=== PATIENT | male | born 1995 | race Caucasian/White ===

== ENCOUNTER 2020-07-28 18:44 | Emergency (ER) | payer OTHER, MEDICAID, SELFPAY ==
[2020-07-28 18:49] VITALS: BP 143/70; PULSE 97; RESP 14; TEMP 37.4; O2SAT 97; BMI 28.2
--- NOTE | 2020-07-28 18:56 | DI.RAD.S_ITS ---
PROCEDURE: XR CHEST 2V INDICATIONS: cough,yellow sputum TECHNIQUE: 2 views of the chest were acquired. COMPARISON: None. FINDINGS: Surgical changes and devices: None. Lungs and pleura: Rounded density within the superior segment left lower lobe measuring 66 mm. No pleural effusions or pneumothorax. Mediastinum: Mediastinal contours are normal. Heart size is normal. Bones and chest wall: No suspicious bony abnormalities. Soft tissues appear unremarkable. IMPRESSION: Rounded density within the left lower lobe, consistent with rounded pneumonia, given the patient's age and symptomatology. Continued plain film follow-up is recommended to ensure resolution, and to exclude underlying neoplasm. Dictated by: Skyler Dominguez M.D. on 07/28/2020 at 19:17 Approved by: Skyler Dominguez M.D. on 07/28/2020 at 19:18
[2020-07-28 19:09] LABS: COVID19 -Nasal RAPID Negative (Negative)
--- NOTE | 2020-07-28 20:08 | ED.GENADULT ---
HPI - General Adult General Chief complaint: Upper Respiratory Symptoms Stated complaint: states bronchitis Time Seen by Provider: 07/28/20 20:03 Source: patient Mode of arrival: Ambulatory Limitations: no limitations History of Present Illness HPI narrative: Patient is a 24-year-old male here for what he states is bronchitis. He states that for the past several weeks he has had a productive cough which he states sometimes is blood tinged. He has also had body aches. No fevers. No abdominal pain. He thinks that he has bronchitis. He was convinced to come the emergency department for evaluation because of his . Related Data Previous Rx's Medication Instructions Recorded azithromycin See Rx Instructions .ROUTE 07/28/20 .COMPLEX #6 tab Allergies Allergy/AdvReac Type Severity Reaction Status Date / Time No Known Drug Allergies Allergy Verified 07/28/20 18:51 Review of Systems Constitutional Constitutional: Denies fatigue, Denies fever(s) and Denies headache(s) ENT Ears, Nose, Mouth, and Throat: Denies headache(s) Cardiovascular Cardiovascular: Denies chest pain and Reports dyspnea Respiratory Respiratory: Reports cough, Reports excessive phlegm production and Reports dyspnea Gastrointestinal Gastrointestinal: Denies abdominal pain, Denies nausea and Denies vomiting Integumentary/Breasts Skin/Breast: Denies rash Neurologic Neurologic: Denies behavioral changes and Denies headache(s) Psychiatric Psychiatric: Denies behavioral changes Endocrine Endocrine: Denies fatigue Hematologic/Lymphatic On Anticoagulants: No Allergic/Immunologic Allergic/Immunologic: Denies urticaria Patient History Medical History Healthy adult Social History Smoking Status: Current every day smoker Smoking Status: Current every day smoker alcohol intake frequency: holidays/special occasions only Substance Use Type: marijuana Exam Initial Vital Signs Initial Vital Signs: Vital Signs Temperature 99.4 F 07/28/20 18:49 Pulse Rate 97 H 07/28/20 18:49 Respiratory Rate 14 07/28/20 18:49 Blood Pressure 143/70 H 07/28/20 18:49 Pulse Oximetry 97 07/28/20 18:49 Const General: cooperative and comfortable Limitations: mental status not altered HENMT Head: normal to inspection and normocephalic Resp Effort & Inspection: normal respiratory effort Auscultation: clear to auscultation bilaterally Cardio Rate: regular rate Rhythm: regular rhythm Skin Lesions: no lesions Rashes: no rashes Neuro General: patient alert, patient awake and patient oriented x3 Cognition: normal cognition Speech: speech normal Extrem General: normal to inspection and capillary refill normal Psych Appearance: grossly normal and well kempt Course Orders Ordered: ED Orders 07/28/20 18:54 COVID19 Stat 07/28/20 18:56 Chest [XR chest 2V] Stat Vital Signs Vital signs: Vital Signs - 8 hr 07/28/20 20:23 Pulse Rate 80 Respiratory Rate 18 Blood Pressure 140/68 Pulse Oximetry 98 Medical Decision Making Lab Data Lab results reviewed: Yes I reviewed the patient's lab results. Labs: Lab Results 07/28/20 Range/Units 18:54 SARS-CoV-2 (PCR) Negative (Negative) Imaging Data Chest x-ray: Radiologist's Impression: Rich Mandujano 24 M [address] [id number] ReportSigned Patient: Rich Mandujano JMR#: [id number]: [id number]:[id number]/Sex: 24 / MDate of Service: 07/28/20Loc: EDAccession Number: [id number] Procedure: XR chest 2V Ordering Provider: Galo Medrano D.O. PROCEDURE: XR CHEST 2V INDICATIONS: cough,yellow sputum TECHNIQUE: 2 views of the chest were acquired. COMPARISON: None. FINDINGS: Surgical changes and devices: None. Lungs and pleura: Rounded density within the superior segment left lower lobe measuring 66 mm. No pleural effusions or pneumothorax. Mediastinum: Mediastinal contours are normal. Heart size is normal. Bones and chest wall: No suspicious bony abnormalities. Soft tissues appear unremarkable. IMPRESSION: Rounded density within the left lower lobe, consistent with rounded pneumonia, given the patient's age and symptomatology. Continued plain film follow-up is recommended to ensure resolution, and to exclude underlying neoplasm. Dictated by: Skyler Dominguez M.D. on 07/28/2020 at 19:17 Approved by: Skyler Dominguez M.D. on 07/28/2020 at 19:18 [facility] Narrative Medical decision making narrative: COVID is negative, chest x-ray is concerning for left lower lobe pneumonia. Secondary to this will treat him with antibiotics. He just recently made contact with a primary provider and has an appointment scheduled already. He was instructed to keep this appointment so that he can have a re-evaluation and a repeat chest x-ray if needed. He was given return precautions and follow-up instructions. He expressed understanding agreement. Discharge Plan Departure Patient Disposition: Home Clinical Impression: Pneumonia Instructions: DI for Pneumonia -- Adult Activity Restrictions/Additional Instructions: Your chest x-ray today is concerning about a left lower lobe pneumonia. A prescription for antibiotics was electronically transmitted to [facility] in [place]. Recommend that you keep your already scheduled follow-up appoint with her primary provider. Return to the emergency department for any new or worsening symptoms Prescriptions: New azithromycin 250 mg tablet See Rx Instructions .ROUTE .COMPLEX Qty: 6 RF: 0
[2020-07-28 20:23] VITALS: BP 140/68; PULSE 80; RESP 18; O2SAT 98
== END 2020-07-28 20:23 | disposition home or self-care (01) ==
PROVIDERS: Emergency Provider Emergency Medicine
DX: J18.9 Pneumonia, unspecified organism (principal); R05 Cough; R06.00 Dyspnea, unspecified; Z20.822 Contact with and (suspected) exposure to COVID-19
CPT/HCPCS: 71046; 87635; 99283; C9803

== ENCOUNTER 2022-03-12 17:23 | Emergency (ER) | payer OTHER, MEDICAID, SELFPAY ==
[2022-03-12 17:26] VITALS: BP 129/69; PULSE 70; RESP 16; TEMP 36.9; O2SAT 99
--- NOTE | 2022-03-12 17:29 | DI.RAD.S_ITS ---
PROCEDURE: XR CHEST 2V INDICATIONS: fever/cough x1wk TECHNIQUE: 2 views of the chest were acquired. COMPARISON: [facility], , XR CHEST 2V, 07/28/2020, 19:02. FINDINGS: Surgical changes and devices: None. Lungs and pleura: Lungs are clear. No pleural effusions or pneumothorax. Mediastinum: Mediastinal contours are normal. Heart size is normal. Bones and chest wall: No suspicious bony abnormalities. Soft tissues appear unremarkable. IMPRESSION: Normal two view chest x-ray Approved by: Jeramie Davis M.D. on 03/12/2022 at 17:23
[2022-03-12 18:38] LABS: COVID19 -Nasal RAPID Negative (Negative)
[2022-03-12 19:12] VITALS: BP 119/68; PULSE 76; RESP 18; O2SAT 95
--- NOTE | 2022-03-12 19:58 | ED.URI ---
HPI - URI/Sore Throat <HUGH Ling - Last Filed: 03/12/22 20:00> General Chief Complaint: Upper Respiratory Symptoms Stated Complaint: Coughing body aches fatigue Time Seen by Provider: 03/12/22 19:01 Source: patient Mode of arrival: Ambulatory History of Present Illness HPI Narrative: This is a 26-year-old male who presents to the emergency department complaining of congestion, runny nose, cough for 7-10 days, states that it started as allergies and it has progressed and he has not been able to clear his sinuses. He now complains of face pain and headaches. He denies any fevers, shortness of breath, chest pain, sore throat, dizziness or ear pain. Related Data Previous Rx's Medication Instructions Recorded azithromycin 250 mg tablet See Rx Instructions PO .COMPLEX #6 07/28/20 tabs amoxicillin 875 mg-potassium 1 tab PO BID 7 days #14 tabs 03/12/22 clavulanate 125 mg tablet Allergies Allergy/AdvReac Type Severity Reaction Status Date / Time No Known Drug Allergies Allergy Verified 07/28/20 18:51 Review of Systems <HUGH Ling - Last Filed: 03/12/22 20:00> Review of Systems Narrative: Review of systems is negative for acute abnormalities unless otherwise noted in HPI Patient History <HUGH Ling - Last Filed: 03/12/22 20:00> Medical History Healthy adult Social History Smoking Status: Current every day smoker Smoking Status: Current every day smoker alcohol intake frequency: holidays/special occasions only Substance Use Type: marijuana Exam <HUGH Ling - Last Filed: 03/12/22 20:00> Narrative Exam Narrative: Reviewed vitals signs and nursing notes. General: cooperative, comfortable, in no acute distress, well groomed HEENT: symmetrical facial expressions, moist mucous membranes, maxillary and frontal tenderness to palpation, congested nares, afebrile, Cardiovascular: regular rate and rhythm, no peripheral edema, warm extremities Respiratory: normal effort, able to speak in complete sentences, without wheezing, stridor, or abnormal breath sounds. No retractions or tachypnea. Psych: mental status is grossly normal, congruent mood, normal affect, pleasant and cooperative Initial Vital Signs Initial Vital Signs: Vital Signs Temperature 98.4 F 03/12/22 17:26 Pulse Rate 70 03/12/22 17:26 Respiratory Rate 16 03/12/22 17:26 Blood Pressure 129/69 03/12/22 17:26 Pulse Oximetry 99 03/12/22 17:26 Oxygen Delivery Method 03/12/22 17:26 <Miri Smith DO - Last Filed: 03/13/22 03:03> Initial Vital Signs Initial Vital Signs: Vital Signs Temperature 98.4 F 03/12/22 17:26 Pulse Rate 70 03/12/22 17:26 Respiratory Rate 16 03/12/22 17:26 Blood Pressure 129/69 03/12/22 17:26 Pulse Oximetry 99 03/12/22 17:26 Oxygen Delivery Method 03/12/22 17:26 Course <HUGH Ling - Last Filed: 03/12/22 20:00> Orders Ordered: ED Orders 03/12/22 18:17 COVID19 -Nasal RAPID/Pre-Proc Stat Vital Signs Vital signs: Vital Signs - 8 hr 03/12/22 19:12 Pulse Rate 76 Respiratory Rate 18 Blood Pressure 119/68 Pulse Oximetry 95 Oxygen Delivery Method Room Air <Miri Smith DO - Last Filed: 03/13/22 03:03> Orders Ordered: ED Orders 03/12/22 18:17 COVID19 -Nasal RAPID/Pre-Proc Stat Vital Signs Vital signs: Vital Signs - 8 hr 03/12/22 19:12 Pulse Rate 76 Respiratory Rate 18 Blood Pressure 119/68 Pulse Oximetry 95 Oxygen Delivery Method Room Air MDM - URI/Sore Throat <HUGH Ling - Last Filed: 03/12/22 20:00> Lab Data Labs: Lab Results 03/12/22 Range/Units 18:17 SARS-CoV-2 (PCR) Negative (Negative) MDM Narrative Medical decision making narrative: This is a 26-year-old male who presents to the emergency department for sinus congestion, face pain, headaches and his symptoms and exam are consistent with sinusitis. Patient has had symptoms for at least 10 days, he was prescribed Augmentin b.i.d. for the next 7 days, encouraged to use saline sinus rinses, Zyrtec at night, and Flonase twice a day. Until his symptoms resolve. #331 & 332: Antibiotic use with Sinusitis *if the second, third, or fourth prompt is selected, only then should the clinician see the sub-prompts addressing amoxicillin x[] The patient has sinusitis and antibiotics are not indicated/not prescribed at this time. [SATISFIES MIPS PERFORMANCE] [x] The patient has sinusitis with symptom onset greater than 10 days ago and the patient was prescribed antibiotics. [SATISFIES MIPS PERFORMANCE] [x] Patient was prescribed an amoxicillin-based antibiotic. <Miri Smith, DO - Last Filed: 03/13/22 03:03> Lab Data Labs: Lab Results 03/12/22 Range/Units 18:17 SARS-CoV-2 (PCR) Negative (Negative) Discharge Plan Departure Patient Disposition: Home Clinical Impression: Sinusitis Instructions: DI for Sinusitis Activity Restrictions/Additional Instructions: *You have been diagnosed with a sinus infection. Please use Flonase and Zyrtec at night up to 20 mg to help treat your symptoms, use sinus rinses if they are helpful, Tylenol and ibuprofen as needed for pain. Hope you feel better soon. *What to do: *Please continue to take your regular medications as directed. [ x] New medication prescriptions sent to your pharmacy: [ [facility]] [ ] New medication written as a paper prescription [ ] No new medications given *Please follow up with your primary care provider in 2-3 days, call for an appointment. Let them know you were seen in the Emergency Department and that we asked that you be seen for follow-up. We will electronically transmit a record of today's note if your PCP is in our system *If you do not have a primary care provider please contact [phone] to establish care with one of the [facility] primary care providers. *Return to Emergency Department if you should have any new, worsening, or concerning symptoms, such as [fever greater than 101F, chills, worsening pain, persistent vomiting or other bothersome symptoms]. Prescriptions: New amoxicillin-pot clavulanate 875-125 mg tablet 1 tab PO BID 7 Days Qty: 14 0RF No Action azithromycin 250 mg tablet See Rx Instructions .ROUTE .COMPLEX Qty: 6 0RF Rx Instructions: take 500 mg today (day 1), then 250 mg for 4 days (days 2-5) Visit Report Forms: Patient Portal/API <Miri Smith DO - Last Filed: 03/13/22 03:03> Cosign ED Attending Cosmichaelature Attestation: I was immediately available in the department for consultation. Documentation has been reviewed. I agree with assessment and plan.
== END 2022-03-12 19:13 | disposition home or self-care (01) ==
PROVIDERS: Emergency Medicine; Emergency Provider Nurse Practitioner Critical Care Medicine
DX: J01.90 Acute sinusitis, unspecified (principal); R05.9 Cough, unspecified; Z20.822 Contact with and (suspected) exposure to COVID-19
CPT/HCPCS: 71046; 87635; 99281; 99283; C9803

== ENCOUNTER 2023-06-09 19:47 | Inpatient (IN) | payer OTHER, MEDICAID, SELFPAY ==
[2023-06-09] VITALS (20 sets, daily range): BP systolic 142–192; BP diastolic 70–103; PULSE 83–95; RESP 10–18; TEMP 37.2–38; O2SAT 89–98; BMI 37.6
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
--- NOTE | 2023-06-09 19:56 | DI.RAD.S_ITS ---
PROCEDURE: XR PELVIS 1-2V INDICATIONS: trauma TECHNIQUE: 1 view(s) of the pelvis acquired. COMPARISON: None. FINDINGS: Bones: No fractures or dislocations. No suspicious bony lesions. Soft tissues: Visualized bowel gas pattern is normal. No suspicious soft tissue calcifications. IMPRESSION: No acute bony abnormality. Dictated by: Jhonatan Guerrero M.D. on 06/09/2023 at 20:15 Approved by: Jhonatan Guerrero M.D. on 06/09/2023 at 20:16
--- NOTE | 2023-06-09 19:56 | DI.CT.S_ITS ---
PROCEDURE: CT CHEST ABD PEL W CON INDICATIONS: Trauma TECHNIQUE: After the administration of intravenous contrast, 5 mm thick sections acquired from the lung apices to the symphysis. 2.5 mm thick coronal and sagittal reformats were acquired. Additional 7 mm thick coronal maximum intensity projection (MIP) reformats acquired through the lungs. Optional 10-minute delayed imaging may be performed from the kidneys to the bladder. For radiation dose reduction, the following was used: automated exposure control, adjustment of mA and/or kV according to patient size. COMPARISON: None. FINDINGS: Image quality: Excellent. CHEST: Lungs: Mild dependent atelectasis bilaterally. Foci of ground-glass within the right middle lobe and to a lesser extent the right lower lobe, may represent contusion. No acute airspace opacities. No pneumothorax or hemothorax. Central and peripheral airways appear patent and normal in caliber. Mediastinum: No mediastinal hematomas. Heart size is normal. No pericardial effusion. Thoracic aorta and pulmonary arteries demonstrate normal size and enhancement. No mediastinal or hilar adenopathy. Esophagus is normal in caliber. No hiatal hernia. Chest wall: Left anterior chest wall subcutaneous stranding and hematoma measuring approximately 5.7 x 2.3 centimeters. Mild displaced fractures of the right anterolateral 3rd and 4th ribs.. Mildly displaced fracture of the left clavicle midshaft. No subcutaneous emphysema. No axillary or supraclavicular adenopathy. Thyroid gland is unremarkable. ABDOMEN: Solid organs: Liver is normal in size and enhancement, without lacerations. Gallbladder contracted, otherwise unremarkable.. Biliary system is non-dilated. Pancreas enhances normally, without transection. Spleen is normal in size and enhancement, without lacerations. No adrenal hematomas. Both kidneys enhance normally, without hydronephrosis or lacerations. Peritoneum and bowel: Small stranding within the right retroperitoneal space posterior to the right colon, likely related to adjacent transverse process fracture. No free fluid or air. Unenhanced bowel loops demonstrate normal wall thickness and caliber. Nodes and vessels: No retroperitoneal or mesenteric adenopathy. Aorta and inferior vena cava are normal in size and enhancement. Miscellaneous: No ventral hernias. PELVIS: Genitourinary: Bladder wall thickness is normal. Miscellaneous: No inguinal hernias or adenopathy. Subcutaneous stranding within the right lower back and adjacent to the right pelvis.. Bones: Pelvic ring and hip joints appear intact. No vertebral compression fractures. Mild displaced fracture of the right L3 and L4 transverse processes. IMPRESSION: 1. Mildly displaced fractures of the right anterolateral 3rd and 4th ribs. There is no associated pneumothorax. Ground-glass within the right middle lobe and to a lesser extent the right lower lobe, may represent contusion. 2. Mildly displaced left clavicle midshaft fracture. 3. Mildly displaced fractures of the right L3 and L4 transverse processes. There is small stranding adjacent to the transverse process fractures extending into the right pericolic gutter. 4. Subcutaneous hematoma within the left chest wall. Subcutaneous stranding along the right lower back and adjacent to the right hip, consistent with contusion. Dictated by: Jhonatan Guerrero M.D. on 06/09/2023 at 20:27 Approved by: Jhonatan Guerrero M.D. on 06/09/2023 at 20:39
--- NOTE | 2023-06-09 19:56 | DI.CT.S_ITS ---
PROCEDURE: CT CERVICAL SPINE WO CON INDICATIONS: Trauma TECHNIQUE: Noncontrast 3 mm thick sections acquired from the skull base to the T4 level. Sagittal and coronal reformats were then constructed. For radiation dose reduction, the following was used: automated exposure control, adjustment of mA and/or kV according to patient size. COMPARISON: None. FINDINGS: Image quality: Excellent. Bones: No fractures or dislocations. Visualized superior ribs are intact. Soft tissues: Prevertebral soft tissues are normal in thickness. No paravertebral hematomas. No apical pneumothoraces. IMPRESSION: No displaced fracture or traumatic subluxation. Dictated by: Jhonatan Guerrero M.D. on 06/09/2023 at 20:25 Approved by: Jhonatan Guerrero M.D. on 06/09/2023 at 20:27
--- NOTE | 2023-06-09 19:56 | DI.RAD.S_ITS ---
PROCEDURE: XR CHEST 1V INDICATIONS: trauma TECHNIQUE: One view of the chest was acquired. COMPARISON: [facility], CR, XR CHEST 2V, 03/12/2022, 17:57. [facility], CR, XR CHEST 2V, 07/28/2020, 19:02. FINDINGS: Surgical changes and devices: None. Lungs and pleura: Lungs are clear. No pleural effusions or pneumothorax. Mediastinum: Mediastinal contours appear normal. Heart size is normal. Bones and chest wall: No suspicious bony lesions. Overlying soft tissues appear unremarkable. IMPRESSION: No acute cardiopulmonary abnormality is seen. Dictated by: Jhonatan Guerrero M.D. on 06/09/2023 at 20:16 Approved by: Jhonatan Guerrero M.D. on 06/09/2023 at 20:16
--- NOTE | 2023-06-09 19:56 | DI.CT.S_ITS ---
PROCEDURE: CT HEAD/BRAIN WO CON INDICATIONS: Trauma TECHNIQUE: Noncontrast 4.5 mm thick angled axial sections acquired from the foramen magnum to the vertex, with coronal and sagittal reformats. For radiation dose reduction, the following was used: automated exposure control, adjustment of mA and/or kV according to patient size. COMPARISON: None. FINDINGS: Image quality: Diagnostic. CSF spaces: Basal cisterns are patent. No extra-axial fluid collections. Ventricles are normal in size and shape. Brain: No midline shift. No intracranial masses or hemorrhage. Melissa-white matter interface is normal. Skull and face: Calvarium and visualized facial bones are intact, without suspicious lesions. Sinuses: Visualized sinuses and mastoids are clear. IMPRESSION: No acute intracranial pathology. Dictated by: Jhonatan Guerrero M.D. on 06/09/2023 at 20:24 Approved by: Jhonatan Guerrero M.D. on 06/09/2023 at 20:25
[2023-06-09 20:11] LABS: Add Manual Diff / Slide Review NO; Basophils Absolute Auto 100 /uL (0-100); Basophils Percent Auto 0.7 % (0-2); Eosinophils Absolute Auto 200 /uL (0-450); Eosinophils Percent Auto 2.2 % (2-4); Hematocrit 43.6 % (41-53); Hemoglobin 14.6 g/dL (13.5-17.5); Lymphocytes Absolute Auto 1800 /uL (1100-4500); Lymphocytes Percent Auto 16.1 % (25-40); Mean Corpuscular HGB Conc 33.4 % (30-36); Mean Corpuscular Hemoglobin 27.1 PG (26-34); Mean Corpuscular Volume 81.3 fL (80-100); Monocytes Absolute Auto 600 /uL (0-900); Neutrophils Absolute Auto 8400 /uL (1500-7000); Platelet Count 341 X10^3/uL (150-400); Red Blood Cell Count 5.37 X10^6/uL (4.5-5.9); Red Cell Distribution Width 18.3 % (11.6-14.8); White Blood Cell Count 11.1 X10^3/uL (4.5-11.0)
[2023-06-09 20:14] LABS: Prothrombin Time 11.7 SECONDS (9.4-12.5)
[2023-06-09 20:16] LABS: PTT Partial Thromboplastin Tim 24 SECONDS (25.1-36.5)
[2023-06-09 20:17] LABS: Lactate (Lactic Acid) 2.1 mmol/L (0.7-2.1)
[2023-06-09 20:19] LABS: Alanine Aminotransferase 76 IU/L (<50); Albumin 4.3 g/dL (3.5-5.0); Albumin Globulin Ratio 1.3 (1.0-2.8); Alkaline Phosphatase 35 U/L (38-126); Aspartate Aminotransferase 87 IU/L (17-59); BUN Creatinine Ratio 11.1 (6-22); Bilirubin Total 0.4 mg/dL (0.2-1.3); Blood Urea Nitrogen 14 mg/dL (9-20); Calcium 9.7 mg/dL (8.4-10.2); Carbon Dioxide 33 mmol/L (22-32); Chloride 95 mmol/L (98-107); Estimated Glomerular Filt Rate > 60 mL/min (>60); Ethanol (ETOH) < 10 mg/dL; Globulin 3.3 g/dL (1.7-4.1); Glucose 106 mg/dL (70-100); HEMOLYSIS < 15 (0-50); Lipase 238 U/L (23-300); Potassium 3.9 mmol/L (3.4-5.1); Sodium 136 mmol/L (137-145); Total Protein 7.6 g/dL (6.3-8.2)
[2023-06-09] MEDS: HYDROMORPHONE 1 MG INJ IV (20:20)
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
[2023-06-09] MEDS: TET,DIPH,PERTUSS(ACELL),VAC/PF 0.5 ML SYRINGE IM (20:36)
[2023-06-09] MEDS: HYDROMORPHONE 0.5 MG INJ 1 MG IV ×5 (20:36→22:29)
[2023-06-09] MEDS: HYDROMORPHONE 1 MG INJ 2 MG IV (20:46)
[2023-06-09 21:45] LABS: Reflexed Lactate in 2 Hours Y
[2023-06-09 21:55] LABS: Lactate 2HR (Lactic Acid Rflx) 1.5 mmol/L (0.7-2.1)
[2023-06-09] MEDS: OXYCODONE IR 5 MG TABLET 15 MG PO (23:26)
[2023-06-10] VITALS (8 sets, daily range): BP systolic 156–178; BP diastolic 74–84; PULSE 71–84; RESP 13–45; TEMP 36.5; O2SAT 88–95
[2023-06-10] MEDS: KETOROLAC 30 MG/ML VIAL 15 MG IV (00:08)
[2023-06-10] MEDS: HYDROMORPHONE 0.5 MG INJ 1 MG IV ×3 (00:58→06:07)
[2023-06-10 01:48] LABS: Ur Creatinine Normal (Normal); Ur Specific Gravity Normal (Normal); Urine pH Normal (Normal)
[2023-06-10 01:49] LABS: MRSA (Nasal) PCR Not Detected (Not Detect)
[2023-06-10 01:49] LABS: UR Morphine/Opiate cutoff 300 Positive (Negative); Urine Amphetamines Negative (Negative); Urine Cocaine Negative (Negative); Urine Methamphetamines Negative (Negative); Urine Tetrahydrocannabinol Positive (Negative)
[2023-06-10 01:50] LABS: Urine Barbiturates Negative (Negative); Urine Benzodiazepines Positive (Negative); Urine MDMA Negative (Negative); Urine Oxycodone Negative (Negative); Urine Phencyclidine Negative (Negative); Urine Tricyclic Antidepressant Negative (Negative)
[2023-06-10 01:52] LABS: Urine Methadone Positive (Negative)
[2023-06-10 01:57] LABS: Appearance Urine UA CLEAR; Bilirubin Urine UA NEGATIVE (NEGATIVE); Color Urine UA YELLOW; Glucose Urine UA NEGATIVE (Negative); Ketones Urine UA NEGATIVE (NEGATIVE); Leukocyte Esterase Urine UA NEGATIVE (NEGATIVE); Nitrite Urine UA NEGATIVE (Negative); Occult Blood Urine UA 3+ (Negative); Protein Urine UA 1+ (Negative); Urobilinogen Urine UA 0.2 E.U./dL (0.2); pH Urine UA 7.5 (4.5-8.0)
[2023-06-10 02:09] LABS: Bacteria Urine None Seen; Culture Indicated Urine Cult Not Indicated; RBC Urine 10-30/HPF (0-5/HPF); Squamous Epithelial Cell Urine None Seen (0-5/HPF); WBC Urine None Seen (0-5/HPF)
[2023-06-10] MEDS: OXYCODONE IR 5 MG TABLET 15 MG PO ×3 (04:26→12:06)
[2023-06-10 04:55] LABS: Add Manual Diff / Slide Review NO; Basophils Absolute Auto 0 /uL (0-100); Basophils Percent Auto 0.3 % (0-2); Eosinophils Absolute Auto 100 /uL (0-450); Hematocrit 41.7 % (41-53); Hemoglobin 13.9 g/dL (13.5-17.5); Lymphocytes Absolute Auto 2000 /uL (1100-4500); Lymphocytes Percent Auto 14.2 % (25-40); Mean Corpuscular HGB Conc 33.2 % (30-36); Mean Corpuscular Hemoglobin 27.1 PG (26-34); Mean Corpuscular Volume 81.5 fL (80-100); Monocytes Absolute Auto 1000 /uL (0-900); Monocytes Percent Auto 7.4 % (3-14); Neutrophils Absolute Auto 10600 /uL (1500-7000); Neutrophils Percent Auto 77.1 % (50-75); Platelet Count 284 X10^3/uL (150-400); Red Blood Cell Count 5.12 X10^6/uL (4.5-5.9); Red Cell Distribution Width 18.2 % (11.6-14.8); White Blood Cell Count 13.7 X10^3/uL (4.5-11.0)
[2023-06-10 05:08] LABS: Alanine Aminotransferase 72 IU/L (<50); Albumin 3.8 g/dL (3.5-5.0); Albumin Globulin Ratio 1.3 (1.0-2.8); Alkaline Phosphatase 34 U/L (38-126); Aspartate Aminotransferase 68 IU/L (17-59); BUN Creatinine Ratio 11.5 (6-22); Bilirubin Total 0.4 mg/dL (0.2-1.3); Blood Urea Nitrogen 13 mg/dL (9-20); Calcium 9.2 mg/dL (8.4-10.2); Carbon Dioxide 28 mmol/L (22-32); Chloride 99 mmol/L (98-107); Estimated Glomerular Filt Rate > 60 mL/min (>60); Glucose 110 mg/dL (70-100); HEMOLYSIS < 15 (0-50); Potassium 4.2 mmol/L (3.4-5.1); Sodium 135 mmol/L (137-145); Total Protein 6.8 g/dL (6.3-8.2)
--- NOTE | 2023-06-10 06:00 | DI.RAD.S_ITS ---
PROCEDURE: XR CHEST 1V INDICATIONS: post trauma TECHNIQUE: One view of the chest was acquired. COMPARISON: [facility], CT, CT CHEST ABD PEL W CON, 06/09/2023, 20:09. [facility], CT, CT CERVICAL SPINE WO CON, 06/09/2023, 20:09. [facility], CR, XR CHEST 1V, 06/09/2023, 19:48. FINDINGS: Surgical changes and devices: None. Lungs and pleura: Lungs are clear. No pleural effusions or pneumothorax. Mediastinum: Mediastinal contours appear normal. Heart size is normal. Bones and chest wall: No suspicious bony lesions. There is a moderately displaced left clavicle fracture, with overlapping of fragments. Overlying soft tissues appear unremarkable. IMPRESSION: Left clavicle fracture. The right-sided rib fractures that can be seen by CT are not well seen on this single-view plain film study. Note: No significant discrepancy from the preliminary report. Dictated by: Reynold Richardson M.D. on 06/10/2023 at 9:23 Approved by: Reynold Richardson M.D. on 06/10/2023 at 9:25
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
[2023-06-10] MEDS: CELECOXIB 200 MG CAPSULE PO (08:50)
[2023-06-10] MEDS: GABAPENTIN 100 MG CAPSULE 400 MG PO (08:50)
[2023-06-10] MEDS: METHADONE 10 MG TABLET 140 MG PO (08:58)
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
== END 2023-06-10 13:35 | disposition home health service (06) | DRG 552 ==
LOC: ED 23:02 → AC 23:23 → ICU 06-10 08:43 → AC 06-11 08:35
PROVIDERS: Admitting Provider Surgery; Emergency Provider Emergency Medicine; Visit Provider Surgery
DX: S32.039A Unspecified fracture of third lumbar vertebra, initial encounter for closed fracture (principal); S22.41XA Multiple fractures of ribs, right side, initial encounter for closed fracture; S32.049A Unspecified fracture of fourth lumbar vertebra, initial encounter for closed fracture; S06.0X0A Concussion without loss of consciousness, initial encounter; S42.022A Displaced fracture of shaft of left clavicle, initial encounter for closed fracture; V43.62XA Car passenger injured in collision with other type car in traffic accident, initial encounter; Z23 Encounter for immunization
CPT/HCPCS: 36415; 70450; 71045; 71260; 72125; 72170; 74177; 80053; 80305; 80320; 81003; 81015; 83605; 83690; 85025; 85610; 85730; 86850; 86900; 86901; 87797; 90471; 96374; 97162; 97165; 97535; 99238; 99285; 99291; G0378; 90715; G0390; J1170; J1885